=== PATIENT | female | born 1930 | race Asian ===

== ENCOUNTER 2019-11-03 11:57 | Emergency (ER) | payer MEDICARE, OTHER ==
--- NOTE | 2019-11-03 12:27 | ED Physician Documentation ---
PD HPI CHEST PAIN - Stated complaint Stated Complaint: DIFFICULTY BREATHING - Chief complaint Chief Complaint: Cardiac - History obtained from History obtained from: Patient, Family - History of Present Illness Timing - onset: Other (89-year-old woman with history of atrial fibrillation and hypertension. Most of her care is in [place], they live there but the daughter lives here and she is up visiting. She had been having some nighttime symptoms for a while some chest pain and difficulty breathing. It sounds like she had a Holter monitor done and she was having episodes of complete heart block. She saw her embalmer apprentice, Dr. Ayoub and a pacemaker was considered, but she is so thin, they felt it would be difficult and the family initially declined. She continues to have the symptoms, including a bad episode this morning with difficulty breathing and dizziness starting at 4 AM.) Review of Systems Ten Systems: 10 systems reviewed and negative Constitutional: reports: Fatigue Cardiac: reports: Chest pain / pressure, Palpitations. denies: Pedal edema, Calf pain Respiratory: reports: Dyspnea. denies: Cough PD PAST MEDICAL HISTORY - Allergies Allergies/Adverse Reactions: Allergies Allergy/AdvReac Type Severity Reaction Status Date / Time No Known Drug Allergies Allergy Verified 11/03/19 12:04 PD ED PE NORMAL - Vitals Vital signs reviewed: Yes - General General: Other (This is a quiet and thin elderly [place] woman in no distress. Daughter does much of the talking for her.) - HEENT HEENT: PERRL, EOMI - Neck Neck: Supple, no meningeal sign, No bony TTP - Cardiac Cardiac: RRR, No murmur - Respiratory Respiratory: No respiratory distress, Clear bilaterally - Abdomen Abdomen: Non tender - Back Back: No CVA TTP, No spinal TTP - Derm Derm: Normal color, Warm and dry - Extremities Extremities: No edema, No calf tenderness / cord - Neuro Neuro: Alert and oriented X 3, Normal speech Results - Vitals Vitals: Vital Signs - 24 hr 11/03/19 11/03/19 11/03/19 12:00 14:27 16:49 Temperature 36.2 C L Heart Rate 84 75 70 Respiratory 18 21 18 Rate Blood Pressure 166/85 H 167/74 H 195/87 H O2 Saturation 96 98 97 11/03/19 19:31 Temperature 36.8 C Heart Rate 73 Respiratory 21 Rate Blood Pressure 163/80 H O2 Saturation 96 Oxygen O2 Source Room air - EKG (time done) 1210 Rate: Rate (enter#) (81) Rhythm: NSR (with PAC) [place]: Normal Intervals: Normal [place], Prolonged QT QRS: LVH Ischemia: Non specific changes. No: ST elevation c/w ischemia Compare to prior EKG: Old EKG unavailable Computer interpretation: Agree with computer - Labs Labs: Laboratory Tests 11/03/19 11/03/19 11/03/19 12:28 12:28 12:28 WBC 4.6 L RBC 4.21 Hgb 12.7 Hct 39.4 MCV 93.6 MCH 30.2 MCHC 32.2 RDW 13.2 Plt Count 182 MPV 9.3 Neut # (Auto) 3.5 Lymph # (Auto) 0.[address] [place] # (Auto) 0.2 Eos # (Auto) 0.0 Baso # (Auto) 0.0 Absolute Nucleated RBC 0.00 Nucleated RBC % 0.0 Sodium 140 Potassium 2.9 L Chloride 106 Carbon Dioxide 24 Anion Gap 10.0 BUN 15 Creatinine 0.7 Estimated GFR (MDRD) 79 L Glucose 159 H Calcium 8.6 Total Bilirubin 0.9 AST 27 ALT 17 Alkaline Phosphatase 48 Troponin I High Sens 73.8 H* Total Protein 7.2 Albumin 3.9 Globulin 3.3 Albumin/Globulin Ratio 1.2 Lipase 32 11/03/19 14:38 WBC RBC Hgb Hct MCV MCH MCHC RDW Plt Count MPV Neut # (Auto) Lymph # (Auto) 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 Mediastinal shift to the left with enlarged heart.) PD MEDICAL DECISION MAKING - ED course ED course: This is an 89-year-old woman with ongoing symptoms from some sort of dysrhythmia. After initial work-up, potassium was repleted orally. I spoke with Dr. Wilner Rivas, on-call for Dr. Ayoub. He looked at her note. She was diagnosed with tachybradycardia syndrome. Because of her size, if she wanted a pacemaker, they would need to refer her to [facility] to have a sub-pectoral pacemaker done, this is not something they do in [place]. They did make that referral, but it sounds like the patient was vacillating. First troponin was modestly elevated. We will check a second 1 in 2 hours. Second troponin came back significantly higher, just about double the first troponin. This is concerning for non-STEMI. She is pain-free in the department. Aspirin and Nitropaste was added, further beta-blockade was held as she seems adequately beta blocked with pulses often in the high 50s. Dr. Rivas was called back for reconsultation at 3:[address] Yeison Tee at 4:12 PM, she also requested a heparin drip which is reasonable. Departure - Departure Disposition: 02 Transfer Acute Care Hosp Clinical Impression: Tachy-daryn syndrome, NSTEMI (non-ST elevated myocardial infarction) Condition: Fair Instructions: ED Paroxysmal Atrial Flutter Discharge Date/Time: 11/03/19 19:32
[2019-11-03 12:43] LABS: BASOPHILS % (AUTO) 0.4 %; EOSINOPHILS % (AUTO) 0.7 %; HGB - HEMOGLOBIN 12.7 g/dL (12.0-16.0); LYMPHOCYTES # (AUTO) 0.9 10^3/uL (1.5-3.5); MEAN CORPUSCULAR HEMOGLOBIN 30.2 pg (27.0-31.0); MEAN CORPUSCULAR HGB CONC 32.2 g/dL (32.0-36.0); MEAN CORPUSCULAR VOLUME 93.6 fL (81.0-99.0); MEAN PLATELET VOLUME 9.3 fL (7.9-10.8); MONOCYTES # (AUTO) 0.2 10^3/uL (0.0-1.0); MONOCYTES % (AUTO) 3.7 %; NEUTROPHILS # (AUTO) 3.5 10^3/uL (1.5-6.6); NEUTROPHILS % (AUTO) 75.5 %; PLT - PLATELET COUNT 182 10^3/uL (130-450); RED BLOOD COUNT 4.21 10^6/uL (4.20-5.40); RED CELL DISTRIBUTION WIDTH 13.2 % (12.0-15.0); WHITE BLOOD COUNT 4.6 x10^3/uL (4.8-10.8)
[2019-11-03 13:02] LABS: ALBUMIN 3.9 g/dL (3.2-5.5); ALBUMIN/GLOBULIN RATIO 1.2 (1.0-2.2); BILIRUBIN,TOTAL 0.9 mg/dL (0.2-1.0); CALCIUM 8.6 mg/dL (8.5-10.3); CREATININE 0.7 mg/dL (0.4-1.0); TOTAL PROTEIN 7.2 g/dL (6.7-8.2)
[2019-11-03] MEDS ORDERED: POTASSIUM CHLORIDE 20 MEQ TABLET PO STA (13:03)
--- NOTE | 2019-11-03 13:24 | XRAY Report ---
Reason: chest/back pain Procedure Date: 11/03/2019 Accession Number: [id number] / [id number] Procedure: XR - Chest 2 View X-Ray CPT Code: 95654 Final Report FULL RESULT: EXAM: CHEST RADIOGRAPHY EXAM DATE: 11/03/2019 12:26 PM. CLINICAL HISTORY: Chest/back pain. COMPARISON: None. TECHNIQUE: 2 views. FINDINGS: Lungs/Pleura: Marked hyperinflation. Left lung volume loss. Extensive left upper lung volume loss with left apical parenchymal opacity and consolidation and pleural parenchymal changes with overlying pleural thickening. Right apical parenchymal scarring and pleural thickening also present as well as right upper lobe volume loss. No pleural effusions or pneumothorax. Mediastinum: Mediastinal shift to the left. Heart appears enlarged. Aortic atherosclerosis. Other: Degenerative changes of the thoracic spine. Thoracic scoliosis. Degenerative changes of both shoulders. IMPRESSION: 1. Hyperinflation. 2. Extensive left greater than right biapical pleural/parenchymal changes with parenchymal scarring and volume loss and overlying pleural thickening most extensively seen in the left lung apex. 3. No other areas of dense consolidation or pleural effusions are identified. [facility]
[2019-11-03] MEDS ORDERED: NITROGLYCERIN 2% PASTE TOP STA (15:09)
[2019-11-03] MEDS ORDERED: ASPIRIN CHEW 81 MG TABLET PO STA (15:09)
[2019-11-03] MEDS ORDERED: HEPARIN 25000UNITS/500ML (D5W) 25,000 UNIT/500 ML BAG IV STA (16:11)
[2019-11-03 19:32] VITALS: BP 163/80
== END 2019-11-03 19:32 | disposition short-term general hospital (02) ==
LOC: ED 11:57
DX: I21.4 Non-ST elevation (NSTEMI) myocardial infarction (principal); I49.5 Sick sinus syndrome; I49.1 Atrial premature depolarization; I45.81 Long QT syndrome; I10 Essential (primary) hypertension
CPT/HCPCS: 36415; 71046; 80053; 83690; 84484; 85025; 93005; 96374; 99284; 99285; A9270

== ENCOUNTER 2019-11-03 19:30 | Outpatient (CLI) | payer OTHER | END 2019-11-03 19:31 | disposition short-term general hospital (02) | LOC: EMS 19:30 | PROVIDERS: ATTEND Surgery | DX: I21.4 Non-ST elevation (NSTEMI) myocardial infarction (principal) | CPT/HCPCS: A0425; A0426 ==